=== PATIENT | male | born 1945 | race Caucasian/White ===

== ENCOUNTER 2017-11-01 09:39 | Outpatient (CLI) | payer MEDICARE, BC ==
[~2017-11-01] VITALS: Ht 177.8 cm; Wt 83.6 kg
--- NOTE | ~2017-11-01 | OP ---
PATIENT NAME: BREN CORREIA MEDICAL RECORD: [id number] :43 LOCATION:D.CAT ADMISSION DATE: SURGEON: TRISTIAN MAZARIEGOS MD DATE OF OPERATION: 11/01/2017 PROCEDURES: 1. PTCA stent of LAD. 2. PTCA stent of left main. 3. Intravascular ultrasound of the LAD and left main. 4. Left heart catheterization. 5. Selective coronary angiography. 6. Left ventriculogram. INDICATION: Angina and coronary artery disease. PROCEDURE IN DETAIL: After informed consent was obtained and after detailed explanation of risks, benefits as well as alternative therapies, the patient elected to proceed with angiogram and angioplasty. The right radial area was prepped and draped in normal sterile fashion. Right radial artery was cannulated via modified Seldinger technique with placement of a 6-Kiswahili sheath. All catheters exchanged through this sheath. FINDINGS: The left ventriculogram was performed in the standard 30-degree MILLS view reveals good cardiac wall motion throughout all segments. Overall ejection fraction estimated 60%. SELECTIVE CORONARY ANGIOGRAPHY: 1. Left main has greater than 70% stenosis confirmed by intravascular ultrasound. 2. Left anterior descending has proximal greater than 70% stenosis confirmed by intravascular ultrasound. Elsewise, the left anterior descending has a second area of 70+ percent stenosis in the midvessel. 3. Left circumflex has moderate irregularities, but no flow-limiting stenosis. 4. Right coronary has hazy 70% stenosis in the midvessel, questionable stenosis proximally that would be better delineated by intravascular ultrasound. PTCA STENT OF THE LEFT MAIN AND LEFT ANTERIOR DESCENDING: The mid left descending was addressed with a 2.5 x 12 mm Joss, the left main with a 3.5 x 12 mm Joss. Result was 0% residual stenosis. OVERALL IMPRESSION: Successful percutaneous transluminal coronary angioplasty stent of the left main and LAD, both going from greater than 70% initial stenosis to 0% residual. PLAN: Plan for PTCA stent of the RCA in the near future. TRANSINT:[id number] Voice Confirmation ID: [id number] DOCUMENT ID: [id number] OPERATIVE REPORT [id number] BREN CORREIA TRISTIAN MAZARIEGOS MD at 1025 CC: [id number] DICTATION DATE: 11/01/17 1354 POLYGRAPH TECHNICIAN: 11/01/17 1436 DEP CLI 11/01/17 [facility] [address] [place] [address]
--- NOTE | ~2017-11-01 | HEMODYNAMI ---
PATIENT:BREN CORREIA MEDICAL RECORD: [id number] : 43 LOCATION:DABAD ADMISSION DATE: 11/01/17 Generatedon:11/01/201713:50 Patient name: BREN CORREIA Patient #: [id number] SSN: DO B: 1945 Date of study: 11/01/2017 Page: Of Hemodynamic Procedure Report Patient Data Patient Demographics Procedure consent was obtained First Name: BREN Gender: Male Last Name: BREN : 1945 Middle Initial: JOANA Age: 72 year(s) Patient #: [id number] Race: Unknown Additional ID: [id number] Contact details Address: [address] [place] [address] State: [place] City: [facility] Zip code: [address] Past Medical History Allergies: No known allergies Admission Admission Data Admission Date: 11/01/2017 Admission Time: 9:39 Procedure Procedure Types Cath Procedure Diagnostic Procedure LHC LHC w/Coronaries FFR/IVUS Intra-Coronary IVUS Initial PCI Procedure Coronary Stent Coronary Stent Initial Miscellaneous Procedures Moderate Sedation up to 30 minutes Procedure Description Procedure Date Procedure Date: 11/01/2017 Procedure Start Time: 13:32 Procedure End Time: 13:49 Procedure Staff Name Function Luciano Bolton MD Performing Physician Lorraine Avery RT Monitor Maurice Mosley RT Scrub Martín Velázquez RN Nurse Procedure Data Cath Procedure Fluoroscopy Diagnostic fluoroscopy Total fluoroscopy Time: 4.3 time: 4.3 min min Diagnostic fluoroscopy Total fluoroscopy dose: 425 dose: 425 mGy mGy Contrast Material Contrast Material Type Amount (ml) Isovue 300 100 Entry Location Entry Primary Successful Side Size Upsize Upsize Entry Closure Ospina ccessful Closure Location (Fr) 1 (Fr) 2 (Fr) Remarks Device Remarks Radial Right 6 Fr Mechanical artery Short Compression Estimated blood loss: 10 ml Diagnostic catheters Device Type Used For End Catheter Placement DIAGNOSTIC [place] 110cm 5 LV Angiography Fr catheter ([id number]) DIAGNOSTIC [place] 110cm 5 Left Coronary Fr catheter ([id number]) Angiography DIAGNOSTIC [place] 110cm 5 Right Coronary Fr catheter ([id number]) Angiography Procedure Complications No complications Procedure Medications Medication Administration Route Dosage Oxygen NC 2 l/min Heparin Flush Bag added to field 2 bags (1000units/500ml NS) 0.9% NaCl I.V. 100 ml/hr Radial Cocktail added to field 1 syringe (Verapomil 2mg/Nitro 400mcg/Heparin 1500units) Fentanyl I.V. 50 mcg Versed I.V. 1 mg Fentanyl I.V. 50 mcg Versed I.V. 1 mg Fentanyl I.V. 50 mcg Versed I.V. 1 mg Radial Cocktail I.A. 1 syringe (Verapomil 2mg/Nitro 400mcg/Heparin 1500units) Lopressor I.V. 5 mg Fentanyl I.V. 50 mcg Versed I.V. 1 mg Heparin Bolus I.V. 4000 units Versed I.V. 1 mg Hemodynamics Rest Heart Rate: 108 (bpm) Snapshots Pre Cath Intra NCS Post Cath Vital Signs Time Heart Resp SPO2 etCO2 NIBP (mmHg) Rhythm Pain Sedation Rate (ipm) (%) (mmHg) Status Level (bpm) 13:14:49 106 20 97 0 150/92(125) NSR 0 (11) 10(A) , No pain 13:19:31 107 19 97 0 147/98(134) NSR 0 (11) 10(A) , No pain 13:24:10 108 21 95 0 149/96(118) NSR 0 (11) 10(A) , No pain 13:28:52 115 20 94 0 146/100(131) NSR 0 (11) 10(A) , No pain 13:33:31 109 19 92 8.2 130/87(104) NSR 0 (11) 9(A) , No pain 13:38:05 117 17 90 0 94/68(84) NSR 0 (11) 9(A) , No pain 13:42:38 94 17 92 3.7 111/66(87) NSR 0 (11) 9(A) , No pain 13:47:12 92 16 90 9.7 107/73(93) NSR 0 (11) 9(A) , No pain Medications Time Medication Route Dose Verified Delivered Reason Note s Effectiveness by by 13:16:05 Oxygen NC 2 l/min Luciano Resendiz Per physician Hoang Velázquez RN 13:16:15 Heparin Flush added 2 bags Luciano Nogueiray used for Bag to Hoang Velázquez RN procedure (1000units/500ml field NS) 13:16:25 0.9% NaCl I.V. 100 Luciano Martín Per physician ml/hr Hoang Velázquez RN 13:16:33 Radial Cocktail added 1 Lucianojohnnie Resendiz used for (Verapomil to syringe Hoang Velázquez RN procedure 2mg/Nitro field 400mcg/Heparin 1500units) 13:27:36 Fentanyl I.V. 50 mcg Luciano Nogueiray for sedation Hoang Velázquez RN 13:27:42 Versed I.V. 1 mg Luciano Martín for sedation Hoang Velázquez RN 13:29:21 Fentanyl I.V. 50 mcg Luciano Martín for sedation Hoang Velázquez RN 13:29:25 Versed I.V. 1 mg Luciano Martín for sedation Hoang Velázquez RN 13:34:06 Fentanyl I.V. 50 mcg Luciano Nogueiray for sedation Hoang Velázquez RN 13:34:11 Versed I.V. 1 mg Luciano Nogueiray for sedation Hoang Velázquez RN 13:34:19 Radial Cocktail I.A. 1 Luciano Luciano for (Verapomil syringe Hoang Bolton MD vasodilation 2mg/Nitro 400mcg/Heparin 1500units) 13:35:48 Lopressor I.V. 5 mg Luciano Resendiz Per physician Hoang Velázquez RN 13:39:06 Fentanyl I.V. 50 mcg Luciano Resendiz for sedation Hoang Velázquez RN 13:39:10 Versed I.V. 1 mg Luciano Martín for sedation Hoang Velázquez RN 13:39:18 Heparin Bolus I.V. 4000 Luciano Martín for units Hoang Velázquez RN anticoagulation 13:42:04 Versed I.V. 1 mg Luciano Martín for sedation oHang Velázquez interventional physician Log Time Note 13:00:54 Maurice Mosley RT(R) sent for patient. Start room use. 13:08:02 Time tracking: Regular hours 13:08:07 Plan of Care:Hemodynamics will remain stable., Cardiac rhythm will remain stable., Comfort level will be maintained., Respiratory function will remain adequate., Patient/ family verbilizes understanding of procedure., Procedure tolerated without complication., Recovers from procedure without complications.. 13:13:44 Patient received from Pre/Post Procedure Room to CCL 1 Alert and oriented. Tansferred to table in Supine position. 13:13:45 Warm blankets applied, and jayla hugger turned on for patient comfort. 13:13:46 Correct patient and procedure confirmed by team. 13:13:47 Signed procedure consent form obtained from patient. 13:13:48 ECG and BP/O2 sat monitors applied to patient. 13:13:49 Vital chart was started 13:16:05 Oxygen 2 l/min NC was administered by Martín Velázquez RN; Per physician; 13:16:15 Heparin Flush Bag (1000units/500ml NS) 2 bags added to field was administered by Martín Veálzquez RN; used for procedure; 13:16:25 0.9% NaCl 100 ml/hr I.V. was administered by Martín Velázquez RN; Per physician; 13:16:33 Radial Cocktail (Verapomil 2mg/Nitro 400mcg/Heparin 1500units) 1 syringe added to field was administered by Martín Velázquez RN; used for procedure; 13:16:48 Rhythm: sinus rhythm 13:16:49 Baseline sample Acquired. 13:16:50 Full Disclosure recording started 13:16:59 H&P Date Dictated: 10/31/2017 Within 30 days and on chart., H&P Addendum completed by physician on day of procedure. (MUST COMPLETE FOR ALL OUTPATIENTS). 13:17:00 Pre-procedure instructions explained to patient. 13:17:01 Pre-op teaching completed and patient verbalized understanding. 13:17:02 Family in waiting room. 13:17:04 Patient NPO since Midnight. 13:17:10 Patient allergic to No known allergies 13:17:12 Is the patient allergic to Iodine/contrast media? No. 13:17:13 Is patient on blood thinner?Yes 13:17:15 ACC The patient was administered the following blood thiners within the last 24 hours: ACCPlavix 13:17:18 Patient diabetic? No. 13:17:22 Previous problem with sedation/anesthesia? No ? 13:17:22 Snore? Yes 13:17:23 Sleep apnea? No 13:17:24 Deviated septum? No 13:17:25 Opens mouth fully? Yes 13:17:26 Sticks out tongue? Yes 13:17:35 Airway obstruction? Yes Emphysema 13:17:41 Dentures? Yes In 13:17:45 Pre procedure: right dorsailis pedis pulse 2+ Normal; easily identifiable; not easily obliterated 13:17:47 Modified Antione's test Ulnar < 7 seconds 13:17:50 Patient pain scale 0/10 ?. 13:17:55 IV patent on arrival in left hand with 0.9% NaCl at [facility]. 13:17:59 Lab results completed and on chart. 13:18:02 Right Radial & Right Groin area was prepped with chlora-prep and draped in sterile fashion 13:18:03 Alarms reviewed by R. N. 13:18:04 Sharps counted by scrub and verified by R.N. 13:18:06 Use device set Radial Dx or PCI 13:18:07 ACIST Syringe (95553) opened to sterile field. 13:18:07 Medline Cath Pack ([id number]) opened to sterile field. 13:18:08 Bag Decanter (2002S) opened to sterile field. 13:18:08 SHEATH 6FR Slender ([id number]) opened to sterile field. 13:18:09 DIAGNOSTIC WIRE .035 260cm J wire (970306) opened to sterile field. 13:18:09 ACIST Hand Control (86132) opened to sterile field. 13:18:10 ACIST Manifold (90289) opened to sterile field. 13:18:10 Tegaderm 4 x 4 (1626W) opened to sterile field. 13:18:11 MBrace Wrist Support ([id number]) opened to sterile field. 13:23:52 Zero performed for pressure channel P1 13:25:32 Physician paged 13:26:55 Final Timeout: patient, procedure, and site verified with staff and physician. All members of the team are in agreement. 13:26:59 Right Radial site verified by team. 13:27:01 Physical assessment completed. ASA score P 2 - A patient with mild systemic disease as per Luciano Bolton MD. 13:27:04 Sedation plan: IV Moderate Sedation Medication:Versed, Fentanyl 13:27:36 Fentanyl 50 mcg I.V. was administered by Martín Velázquez RN; for sedation; 13:27:42 Versed 1 mg I.V. was administered by Martín Velázquez RN; for sedation; 13:29:21 Fentanyl 50 mcg I.V. was administered by Martín Velázquez RN; for sedation; 13:29:25 Versed 1 mg I.V. was administered by Martín Velázquez RN; for sedation; 13:32:44 Procedure started. 13:32:48 Local anesthetic to right radial artery with Lidocaine 2% by Luciano Bolton MD.INITIAL ACCESS ONLY 13:32:59 A 6 Fr Short sheath was inserted into the Right Radial artery 13:33:09 A DIAGNOSTIC [place] 110cm 5 Fr catheter (593955) was advanced over the wire and used for LV Angiography. 13:34:06 Fentanyl 50 mcg I.V. was administered by Martín Velázquez RN; for sedation; 13:34:11 Versed 1 mg I.V. was administered by Martín Velázquez RN; for sedation; 13:34:19 Radial Cocktail (Verapomil 2mg/Nitro 400mcg/Heparin 1500units) 1 syringe I.A. was administered by Luciano Bolton MD; for vasodilation; 13:34:45 A DIAGNOSTIC [place] 110cm 5 Fr catheter (267465) was advanced over the wire and used for Left Coronary Angiography. 13:35:07 Use device set [facility] PCI 13:35:11 INFLATOR Merit BasixCompak (TT4343) opened to sterile field. 13:35:18 CHOICE PT Extra Support 182cm wire ([id number]) opened to sterile field. 13:35:28 A DIAGNOSTIC [place] 110cm 5 Fr catheter (609231) was advanced over the wire and used for Right Coronary Angiography. 13:35:42 Catheter removed. 13:35:48 Lopressor 5 mg I.V. was administered by Martín Velázquez RN; Per physician; 13:36:47 GUIDE 6FR XBLAD 3.5 catheter ([id number]) opened to sterile field. 13:36:57 [place] IVUS Catheter (20111C) opened to sterile field. 13:37:58 6 Fr XBLAD 3.5 guide catheter was inserted over the wire 13:38:12 Choice PT ES wire advanced. 13:38:52 IVUS catheter advanced over wire. 13:39:06 Fentanyl 50 mcg I.V. was administered by Martín Velázquez RN; for sedation; 13:39:07 IVUS pass to LAD lesion performed. 13:39:10 Versed 1 mg I.V. was administered by Martín Velázquez RN; for sedation; 13:39:18 Heparin Bolus 4000 units I.V. was administered by Martín Velázquez RN; for anticoagulation; 13:41:17 IVUS catheter removed over wire. 13:42:04 Versed 1 mg I.V. was administered by Martín Velázquez RN; for sedation; 13:42:48 Inflation Number: 1 A ANAHI RX 2.5 x 12 stent ([id number]) was prepped and advanced across the Mid LAD. The stent was deployed at 17 SRIDEVI for 0:08 (min:sec). 13:43:04 Inflation number: 2 The stent balloon was then re-inflated across the Mid LAD to 17 SRIDEVI for 0:06 (min:sec). 13:43:29 Inflation number: 3 The stent balloon was then re-inflated across the Mid LAD to 21 SRIDEVI for 0:10 (min:sec). 13:43:48 Stent catheter was removed intact over wire. 13:45:07 Inflation Number: 1 A ANAHI RX 3.5 x 12 stent ([id number]) was prepped and advanced across the LMCA. The stent was deployed at 13 SRIDEVI for 0:04 (min:sec). 13:45:26 Stent catheter was removed intact over wire. 13:45:27 Wire removed. 13:45:27 Guide catheter removed. 13:45:44 Sheath removed intact; hemostasis achieved with Mechanical Compression to the Right Radial artery. 13:45:47 Procedure ended.(Physican Out) 13:45:56 Fluoroscopy time 04.30 minutes. 13:45:59 Fluoroscopy dose: 425 mGy 13:45:59 Flurop Dose total: 425 13:46:04 Contrast amount:Isovue 300 100ml. 13:46:05 Sharps counted by scrub and verified by R.N. 13:46:08 TR band inflated with 10cc of air. 13:46:10 Insertion/operative site no bleeding no hematoma. 13:46:19 Post right radial artery:stable, clean and dry 13:46:21 Post Procedure Pulses reassessed and unchanged 13:46:25 Post-procedure physical assessment completed. ASA score P 2 - A patient with mild systemic disease as per Luciano Bolton MD. 13:46:28 Post procedure rhythm: unchanged. 13:46:31 Estimated blood loss: 10 ml 13:46:33 Post procedure instruction explained to patient.Patient verbalizes understanding. 13:46:33 Patient needs reinforcement of post procedure teaching. 13:47:03 Procedure type changed to Cath procedure, Diagnostic procedure, LHC, LHC w/Coronaries, FFR/IVUS, Intra-Coronary IVUS Initial, PCI procedure, Coronary Stent, Coronary Stent Initial, Miscellaneous Procedures, Moderate Sedation up to 30 minutes 13:47:10 Procedure Complication : No complications 13:47:12 See physician's report for complete and final results. 13:47:23 TR BAND Standard ([id number]) opened to sterile field. 13:48:34 Procedure and supply charges have been captured, reviewed, submitted and are correct. 13:49:42 Vital chart was stopped 13:49:43 Report given to Pre/Post Procedure Room. 13:49:47 Patient transfered to Pre/Post Procedure Room with Stretcher. 13:49:58 Procedure ended. 13:49:58 Full Disclosure recording stopped 13:50:17 End room use (Document Last) Intervention Summary Intervention Notes Time ActionType Lesion and Equipment Used Action# Pressure Duration Attributes 13:42:48 Place stent Mid LAD ANAHI RX 2.5 x 1 17 00:08 12 stent ([id number]) 13:43:04 Reinflate Mid LAD ANAHI RX 2.5 x 2 17 00:06 stent 12 stent balloon ([id number]) 13:43:29 Reinflate Mid LAD ANAHI RX 2.5 x 3 21 00:11 stent 12 stent balloon ([id number]) 13:45:07 Place stent LMCA ANAHI RX 3.5 x 1 13 00:04 12 stent ([id number]) Device Usage Item Name Manufacture Quantity Catalog Number Hospital Part Current M inimal Lot# / Charge Number Stock Stock Serial# Code ACIST Syringe Acist 1 65762 074927 421885 625384 2 0 33605) CoreValue Software Medline Cath Cardinal 1 [id number] 573241 77014 652749 5 [facility] ([id number]) Bag Decanter Microtek 1 2001S 594842 34986 960483 5 () Medical Inc. SHEATH 6FR Terumo 1 [id number] 039661 817579 767552 4 0 Slender ([id number]) DIAGNOSTIC St Chuck 1 807358 363683 822730 416165 3 0 WIRE .035 260cm J wire (646659) ACIST Hand Acist 1 82412 234732 172289 212499 5 Control Medical (50304) Systems Inc ACIST Manifold Acist 1 44472 080649 177406 871256 5 (66812) Medical Systems Inc Tegaderm 4 x 4 3M 1 1626W 243653 905005 757122 5 (1626W) MBrace Wrist Advanced 1 140-0250-00 897325 21973 234572 5 Support Vascular (240850032) Dynamics DIAGNOSTIC Terumo 1 405013 830490 107289 257315 5 [place] 110cm 5 Fr catheter (675978) INFLATOR Merit Merit 1 RI2126 436918 376320 727839 1 5 [place] (OL7982) CHOICE PT [place] 1 [id number] 629066 168404 682888 5 Extra Support Scientific 182cm wire (5834284H3) GUIDE 6FR Cardinal 1 [id number] 652935 486135 020048 1 0 XBLAD 3.5 Health catheter (90924061) [place] 1 99558A 185643 545615 362667 8 [place] IVUS Catheter (43491I) ANAHI RX 2.5 x Medtronic 1 [id number] 005774 2351483 569731 5 [id number] 12 stent ([id number]) ANAHI RX 3.5 x Medtronic 1 [id number] 501250 8823991 460930 5 [id number] 12 stent ([id number]) TR BAND Terumo 1 [id number] 525263 118040 634417 4 0 Standard ([id number]) Signature Audit [place] Stage Time Signature Unsigned Intra-Procedure 11/01/2017 Lorraine 1:50:25 PM Counts RT(R) Signatures Monitor : Lorarine Signature : Counts RT Date : Time : [address] [place] [address]
[~2017-11-01 09:39] MED LIST: ASPIRIN 81 MG E81 MG PO; ASPIRIN EC81 MG; LIPITOR10 MG; LIPITOR10 MG PO; NORCO 7.5-3251 EACH PO; PLAVIX75 MG PO; ROBAXIN-750750 MG; XANAX1 MG PO
[2017-11-01 10:28] VITALS: BP 167/95; Ht 177.8 cm; Wt 83.6 kg
[2017-11-01 10:45] LABS: BASOPHILS 0.2 % (0-2); EOSINOPHILS 1.3 % (0-7); HEMATOCRIT 53.9 % (42.0-54.0); HEMOGLOBIN 18.9 g/dL (13.5-17.5); IMMATURE GRANULOCYTES 0.3 % (0-5); LYMPHOCYTES 13.7 % (15-50); MCH 32.5 pg (26.0-34.0); MCHC 35.1 g/dL (31.0-37.0); MCV 92.8 fL (80.0-100.0); MEAN PLATELET VOLUME 9.9 fL (7.4-10.4); MONOCYTES 8.3 % (2-11); NEUTROPHILS 76.2 % (40-80); PLATELET COUNT 181 10x3/uL (130-400); RBC 5.81 10x6/uL (4.20-6.10); RDW 12.8 % (11.5-14.5)
[2017-11-01 10:54] LABS: CALC OSMOLALITY 278 mosm/kg (275-300); CALCIUM 9.3 mg/dL (8.5-10.1); CARBON DIOXIDE 24.1 mmol/L (21.0-32.0); CHLORIDE - SERUM 100 mmol/L (98-107); CREATININE - SERUM 0.9 mg/dL (0.6-1.3); GLUCOSE 111 mg/dL (74-106); POTASSIUM - SERUM 3.9 mmol/L (3.5-5.1); SODIUM 138 mmol/L (136-145); UREA NITROGEN 17 mg/dL (7-18); eGFR NON AFRICAN AMERICAN 88 mL/min (90-120)
== END 2017-11-01 17:50 | disposition home or self-care (01) ==
LOC: D.CATH 09:39
PROVIDERS: Internal Medicine Interventional Cardiology
DX: I25.110 Atherosclerotic heart disease of native coronary artery with unstable angina pectoris (principal); I48.91 Unspecified atrial fibrillation; R00.0 Tachycardia, unspecified; E78.5 Hyperlipidemia, unspecified; F17.200 Nicotine dependence, unspecified, uncomplicated; Z01.812 Encounter for preprocedural laboratory examination
CPT/HCPCS: 93458; 92978; 92979; C9600 ×2

== ENCOUNTER 2017-11-06 08:28 | Outpatient (CLI) | payer MEDICARE, BC ==
[~2017-11-06] VITALS: Ht 177.8 cm; Wt 83.2 kg
--- NOTE | ~2017-11-06 | OP ---
PATIENT NAME: BREN CORREIA MEDICAL RECORD: [id number] :43 LOCATION:D.CAT ADMISSION DATE: SURGEON: TRISTIAN MAZARIEGOS MD DATE OF OPERATION: 11/06/2017 PROCEDURES: 1. PTCA and stent of RCA. 2. Selective coronary angiography. INDICATION: Angina and coronary artery disease. PROCEDURE IN DETAIL: After informed consent was obtained and after detailed explanation of risks, benefits as well as alternative therapies, the patient elected to proceed with angiogram and angioplasty. The right radial area was prepped and draped in normal sterile fashion. Right radial artery was cannulated via modified Seldinger technique with placement of 6-Bengali sheath. All catheters exchanged through this sheath. FINDINGS: The right coronary has 80% stenosis in the mid vessel, that is in-stent restenosis. It was addressed with a 3.5 x 18 mm Douglas stent taken to 21 atmospheres. Result was 0% residual stenosis. OVERALL IMPRESSION: Successful PTCA and stent of the RCA going from 80% initial stenosis to 0% residual. TRANSINT:[id number] Voice Confirmation ID: [id number] DOCUMENT ID: [id number] TRISTIAN MAZARIEGOS MD at 1025 CC: [id number] DICTATION DATE: 11/06/17 1126 PRECISION MILLWRIGHT: 11/06/17 1322 DEP CLI 11/06/[address] [id number]
--- NOTE | ~2017-11-06 | HEMODYNAMI ---
PATIENT:BREN CORREIA MEDICAL RECORD: [id number] : 43 LOCATION:[facility] ADMISSION DATE: 11/06/17 Generatedon:11/06/201711:27 Patient name: BREN CORREIA Patient #: [id number] SSN: DO B: 1945 Date of study: 11/06/2017 Page: Of Hemodynamic Procedure Report Patient Data Patient Demographics Procedure consent was obtained First Name: BREN Gender: Male Last Name: BREN : 1945 Middle Initial: JOANA Age: 72 year(s) Patient #: [id number] Race: Unknown Additional ID: [id number] Contact details Address: [address] [place] [address] State: [place] City: [facility] Zip code: [address] Past Medical History Allergies: No known allergies Admission Admission Data Admission Date: 11/06/2017 Admission Time: 8:28 Procedure Procedure Types Cath Procedure PCI Procedure Coronary Stent Coronary Stent Initial Miscellaneous Procedures Moderate Sedation up to 15 minutes Procedure Description Procedure Date Procedure Date: 11/06/2017 Procedure Start Time: 11:19 Procedure End Time: 11:27 Procedure Staff Name Function Luciano Bolton MD Performing Physician Maurice Mosley RT Monitor Cecelia Lopez RT Scrub Alvaro Kelly RN Nurse Martín Velázquez RN Military Technology Manager Procedure Data Cath Procedure Fluoroscopy Diagnostic fluoroscopy Total fluoroscopy Time: 1.2 time: 1.2 min min Diagnostic fluoroscopy Total fluoroscopy dose: 108 dose: 108 mGy mGy Contrast Material Contrast Material Type Amount (ml) Isovue 300 20 Entry Location Entry Primary Successful Side Size Upsize Upsize Entry Closure Ospina ccessful Closure Location (Fr) 1 (Fr) 2 (Fr) Remarks Device Remarks Radial Right 6 Fr Mechanical artery Short Compression Estimated blood loss: 10 ml Procedure Complications No complications Procedure Medications Medication Administration Route Dosage 0.9% NaCl I.V. 100 ml/hr Oxygen NC 2 l/min Heparin Flush Bag added to field 2 bags (1000units/500ml NS) Lidocaine 2% added to field 20 Radial Cocktail added to field 1 syringe (Verapomil 2mg/Nitro 400mcg/Heparin 1500units) Versed I.V. 2 mg Fentanyl I.V. 100 mcg Versed I.V. 1 mg Radial Cocktail I.A. 1 syringe (Verapomil 2mg/Nitro 400mcg/Heparin 1500units) Versed I.V. 1 mg Heparin Bolus I.V. 4000 units Hemodynamics Rest Heart Rate: 84 (bpm) Pressure Samples Time Site Value (mmHg) Purpose Heart Use Rate(bpm) 11:21 AO 98/64(79) Snapshot 98 Snapshots Pre Cath Intra NCS Post Cath Vital Signs Time Heart Resp SPO2 etCO2 NIBP (mmHg) Rhythm Pain Sedation Rate (ipm) (%) (mmHg) Status Level (bpm) 11:08:56 85 21 99 29.6 144/97(123) NSR 0 (11) 10(A) , No pain 11:13:35 88 15 98 30.4 139/80(112) NSR 0 (11) 10(A) , No pain 11:18:13 87 23 98 38 123/88(106) NSR 0 (11) 10(A) , No pain 11:22:46 98 14 97 0 118/77(87) NSR 0 (11) 9(A) , No pain Medications Time Medication Route Dose Verified Delivered Reason Notes Effectiveness by by 11:08:52 0.9% NaCl I.V. 100 Alvaro Per ml/hr Leticia physician RN 11:09:05 Oxygen NC 2 l/min Alvaro Alvaro Per Leticia Kelly physician RN RN 11:10:46 Heparin Flush added 2 bags Alvaro Alvaro used for Bag to Lorigan Lorigan procedure (1000units/500ml RN RN NS) 11:11:00 Lidocaine 2% added 20ml Alvaro Alvaro for local to vial Lorigan Lorigan anesthetic field HOME BHAT 11:11:13 Radial Cocktail added 1 Alvaro Alvaro used for (Verapomil to syringe Lorigan Lorigan procedure 2mg/Nitro field BHAT RN 400mcg/Heparin 1500units) 11:17:24 Versed I.V. 2 mg Alvaro Alvaro for sedation Leticia Kelly RN, RN 11:17:32 Fentanyl I.V. 100 mcg Alvaro Alvaro for sedation Lorigan Lorigan RN RN 11:19:07 Versed I.V. 1 mg Alvaro Alvaro for sedation Leticia Kelly RN RN 11:19:19 Radial Cocktail I.A. 1 Alvaro Luciano for (Verapomil syringe Leticia Bolton MD vasodilation 2mg/Nitro RN 400mcg/Heparin 1500units) 11:20:43 Versed I.V. 1 mg Alvaro Alvaro for sedation Leticia Kelly RN RN 11:21:35 Heparin Bolus I.V. 4000 Alvaro Alvaro for units Leticia Kelly antiplatelet RN RN therapy Procedure Log Time Note 10:40:52 Martín Velázquez RN sent for patient. Start room use. 10:54:52 Time tracking: Regular hours 10:54:57 Plan of Care:Hemodynamics will remain stable., Cardiac rhythm will remain stable., Comfort level will be maintained., Respiratory function will remain adequate., Patient/ family verbilizes understanding of procedure., Procedure tolerated without complication., Recovers from procedure without complications.. 10:59:24 Patient received from Pre/Post Procedure Room to CCL 1 Alert and oriented. Tansferred to table in Supine position. 10:59:25 Warm blankets applied, and jayla hugger turned on for patient comfort. 10:59:26 Correct patient and procedure confirmed by team. 10:59:28 Signed procedure consent form obtained from patient. 11:08:07 ECG and BP/O2 sat monitors applied to patient. 11:08:10 Vital chart was started 11:08:52 0.9% NaCl 100 ml/hr I.V. was administered by Alvaro Kelly RN; Per physician; 11:09:05 Oxygen 2 l/min NC was administered by Alvaro Kelly RN; Per physician; 11:10:09 Baseline sample Acquired. 11:10:13 Rhythm: sinus rhythm 11:10:15 Full Disclosure recording started 11:10:18 H&P Date Dictated: 11/06/2017 New H&P dictated by physician.. 11:10:19 Pre-procedure instructions explained to patient. 11:10:20 Pre-op teaching completed and patient verbalized understanding. 11:10:22 Family in patients room. 11:10:23 Patient NPO since Midnight. 11:10:25 Is the patient allergic to Iodine/contrast media? No. 11:10:26 Is patient on blood thinner?Yes 11:10:33 ACC The patient was administered the following blood thiners within the last 24 hours: ACCPlavix 11:10:34 Patient diabetic? No. 11:10:37 Previous problem with sedation/anesthesia? No ? 11:10:38 Snore? Yes 11:10:39 Sleep apnea? No 11:10:40 Deviated septum? Yes 11:10:41 Opens mouth fully? Yes 11:10:42 Sticks out tongue? Yes 11:10:46 Heparin Flush Bag (1000units/500ml NS) 2 bags added to field was administered by Alvaro Kelly RN; used for procedure; 11:10:59 Airway obstruction? Yes Emphysema 11:11:00 Lidocaine 2% 20ml vial added to field was administered by Alvaro Kelly RN; for local anesthetic; 11:11:09 Dentures? No ? 11:11:10 Pre procedure: right dorsailis pedis pulse 1+ Palpable, but thready & weak; easily obliterated 11:11:12 Modified Antione's test Ulnar < 7 seconds 11:11:13 Radial Cocktail (Verapomil 2mg/Nitro 400mcg/Heparin 1500units) 1 syringe added to field was administered by Alvaro Kelly RN; used for procedure; 11:11:14 Patient pain scale 0/10 ?. 11:11:21 IV patent on arrival in left forearm with 0.9% NaCl at [facility]. 11:11:23 Lab results completed and on chart. 11:11:26 Right Radial & Right Groin area was prepped with chlora-prep and draped in sterile fashion 11:11:27 Alarms reviewed by R. N. 11:11:28 Sharps counted by scrub and verified by R.N. 11:11:36 Use device set Radial Dx or PCI 11:11:43 Tegaderm 4 x 4 ([id number]) opened to sterile field. 11:11:44 ACIST Manifold (51452) opened to sterile field. 11:11:45 ACIST Hand Control (96284) opened to sterile field. 11:11:46 ACIST Syringe (65016) opened to sterile field. 11:11:47 Medline Cath Pack ([id number]) opened to sterile field. 11:11:47 Bag Decanter (2002) opened to sterile field. 11:11:48 SHEATH 6FR Slender ([id number]) opened to sterile field. 11:11:48 DIAGNOSTIC WIRE .035 260cm J wire (068748) opened to sterile field. 11:11:49 MBrace Wrist Support ([id number]) opened to sterile field. 11:11:55 Use device set [facility] PCI 11:12:02 GUIDE 6FR HS I catheter (LA6HSI) opened to sterile field. 11:12:05 INFLATOR Merit BasixCompak (VK3091) opened to sterile field. 11:12:13 CHOICE PT Extra Support 182cm wire ([id number]) opened to sterile field. 11:16:38 --------ALL STOP TIME OUT------ 11:16:39 Final Timeout: patient, procedure, and site verified with staff and physician. All members of the team are in agreement. 11:16:43 Right Radial & Right Groin site verified by team. 11:16:45 Physical assessment completed. ASA score P 2 - A patient with mild systemic disease as per Luciano Bolton MD. 11:16:49 Sedation plan: IV Moderate Sedation Medication:Versed, Fentanyl 11:17:24 Versed 2 mg I.V. was administered by Alvaro Kelly RN; for sedation; 11:17:32 Fentanyl 100 mcg I.V. was administered by Alvaro Kelly RN; for sedation; 11:18:47 Procedure started. 11:19:07 Versed 1 mg I.V. was administered by Alvaro Kelly RN; for sedation; 11:19:12 Local anesthetic to right radial artery with Lidocaine 2% by Luciano Bolton MD.INITIAL ACCESS ONLY 11:19:16 A 6 Fr Short sheath was inserted into the Right Radial artery 11:19:19 Radial Cocktail (Verapomil 2mg/Nitro 400mcg/Heparin 1500units) 1 syringe I.A. was administered by Luciano Bolton MD; for vasodilation; 11:19:58 6 Fr HS 1 guide catheter was inserted over the wire 11:20:43 Versed 1 mg I.V. was administered by Alvaro Kelly RN; for sedation; 11:20:47 Study PCI Site: [place] mRCA has 80% stenosis. 11:20:49 ACC Pre-intervention ROBBY Flow is 3. 11:21:29 Choice PT XS wire advanced. 11::35 Heparin Bolus 4000 units I.V. was administered by Alvaro Kelly RN; for antiplatelet therapy; 11::38 Wire advanced across lesion. 11:23:08 Inflation Number: 1 A ANAHI RX 3.5 x 18 stent ([id number]) was prepped and advanced across the Mid RCA. The stent was deployed at 21 SRIDEVI for 0:10 (min:sec). 11:23:18 ACC Post-intervention ROBBY Flow is 3. 11:23:25 Stent catheter was removed intact over wire. 11:23:26 Wire removed. 11:23:26 Guide catheter removed. 11::43 TR BAND Large ([id number]) opened to sterile field. 11::54 Sheath removed intact; hemostasis achieved with Mechanical Compression to the Right Radial artery. 11:23:56 Procedure ended.(Physican Out) 11:25:33 Fluoroscopy time 01.20 minutes. 11:25:36 Fluoroscopy dose: 108 mGy 11:25:36 Flurop Dose total: 108 11::49 Contrast amount:Isovue 300 20ml. 11:25:50 Sharps counted by scrub and verified by R.N. 11:25:58 TR band inflated with 12cc of air. 11:26:00 Insertion/operative site no bleeding no hematoma. 11:26:01 Post Procedure Pulses reassessed and unchanged 11:26:04 Post-procedure physical assessment completed. ASA score P 2 - A patient with mild systemic disease as per Luciano Bolton MD. 11:26:07 Post procedure rhythm: unchanged. 11:26:10 Estimated blood loss: 10 ml 11:26:12 Post procedure instruction explained to patient.Patient verbalizes understanding. 11:26:12 Patient needs reinforcement of post procedure teaching. 11::18 Procedure and supply charges have been captured, reviewed, submitted and are correct. 11:26:20 Procedure Complication : No complications 11:26:51 Vital chart was stopped 11::52 See physician's report for complete and final results. 11::54 Report given to Pre/Post Procedure Room. 11:26:57 Patient transfered to Pre/Post Procedure Room with Stretcher. 11:27:00 Procedure ended. 11:27:00 Full Disclosure recording stopped 11:27:05 End room use (Document Last) Intervention Summary Intervention Notes Time ActionType Lesion and Equipment Used Action# Pressure Duration Attributes 11:23:08 Place stent Mid RCA ANAHI RX 3.5 x 1 21 00:10 18 stent ([id number]) Device Usage Item Name Manufacture Quantity Catalog Number Hospital Part Current M inimal Lot# / Charge Number Stock Stock Serial# Code Tegaderm 4 x 4 3M 1 [id number] [id number] [id number] 5 ([id number]) ACIST Manifold Acist 1 22713 778896 265611 181090 5 (44315) Medical Systems Inc ACIST Hand Acist 1 25493 739970 086838 122220 5 Control Medical (06191) Systems Inc ACIST Syringe Acist 1 79129 153220 296500 929243 2 0 (40603) Medical Systems Inc Medline Cath Cardinal 1 [id number] 963149 13497 059042 5 Ledzworld ([id number]) Bag Decanter Microtek 1 2001S 313378 40889 076694 5 () Medical Inc. SHEATH 6FR Terumo 1 [id number] 900409 052727 334486 4 0 Slender ([id number]) DIAGNOSTIC St Chuck 1 200777 790922 382682 789408 3 0 WIRE .035 260cm J wire (881912) MBrace Wrist Advanced 1 140-0250-00 993400 90969 271131 5 Support Vascular ([id number]) Dynamics GUIDE 6FR HS I Medtronic 1 LA6HSI 953344 54819 464397 1 catheter (LA6HSI) INFLATOR Merit Merit 1 AD5784 991866 660801 108986 1 5 Collected Inc. Medical (UK1195) CHOICE PT [place] 1 [id number] 766689 861850 085029 5 Extra Support Scientific 182cm wire ([id number]) ANAHI RX 3.5 x Medtronic 1 [id number] 176553 8887926 027395 5 [id number] 18 stent ([id number]) TR BAND Large Terumo 1 [id number] 552682 728972 530303 4 0 ([id number]) Signature Audit [place] Stage Time Signature Unsigned Intra-Procedure 11/06/2017 Maurice Mosley 11:27:26 AM RT(R) Signatures Monitor : Maurice Mosley RT Signature : Date : Time : [address] [place] [address]
[2017-11-06 09:25] VITALS: BP 170/93; Ht 177.8 cm; Wt 83.2 kg
[2017-11-06 09:27] LABS: BASOPHILS 0.4 % (0-2); EOSINOPHILS 1.6 % (0-7); HEMOGLOBIN 18.9 g/dL (13.5-17.5); IMMATURE GRANULOCYTES 0.2 % (0-5); LYMPHOCYTES 30.1 % (15-50); MCH 32.8 pg (26.0-34.0); MCV 93.6 fL (80.0-100.0); MONOCYTES 8.9 % (2-11); NEUTROPHILS 58.8 % (40-80); PLATELET COUNT 194 10x3/uL (130-400); RBC 5.77 10x6/uL (4.20-6.10); RDW 12.9 % (11.5-14.5); WBC 10.9 10x3/uL (4.8-10.8)
[2017-11-06 09:35] LABS: ANION GAP 15.3 mmol/L (8-16); CALCIUM 9.1 mg/dL (8.5-10.1); CARBON DIOXIDE 27.3 mmol/L (21.0-32.0); CREATININE - SERUM 1.1 mg/dL (0.6-1.3); POTASSIUM - SERUM 3.6 mmol/L (3.5-5.1)
== END 2017-11-06 15:39 | disposition home or self-care (01) ==
LOC: D.CATH 08:28
PROVIDERS: Internal Medicine Interventional Cardiology
DX: I25.110 Atherosclerotic heart disease of native coronary artery with unstable angina pectoris (principal); Z01.812 Encounter for preprocedural laboratory examination